=== PATIENT | male | born 1985 | race Caucasian/White ===

== ENCOUNTER 2017-04-01 05:17 | Day surgery (SDC) | payer BC, MEDICAID ==
[2017-04-01] MEDS ORDERED: Glycopyrrolate 0.2 MG/ML 2 ML SDV IV ONE (05:18)
[2017-04-01] MEDS ORDERED: Ketorolac 30 MG/ML SDV IVPUSH ONE (05:18)
[2017-04-01] MEDS ORDERED: Lidocaine 2% 20 ML MDV INJECT ONE (05:18)
[2017-04-01] MEDS ORDERED: Ondansetron 4 MG/2 ML SDV IV ONE (05:18)
[2017-04-01] MEDS ORDERED: Midazolam 1 MG/ML 2 ML SDV IV ONE (05:18)
[2017-04-01] MEDS ORDERED: Famotidine 20 MG/2 ML SDV IV ONE (05:18)
[2017-04-01] MEDS ORDERED: Lidocaine 1% 30 ML SDV INJECT ONE ×3 (05:18→09:01)
[2017-04-01] MEDS ORDERED: fentaNYL 100 MCG/2 ML SDV IV ONE (05:18)
[2017-04-01] MEDS ORDERED: Propofol 200 MG/20 ML SDV IV ONE (05:18)
[2017-04-01] MEDS ORDERED: Sodium Chloride 0.9% 10 ML Syringe FLUSH PRN ×2 (06:00)
[2017-04-01] MEDS ORDERED: ceFAZolin 1 GM in Premix Bag 1 BAG IV ONE ×2 (06:00→06:47)
[2017-04-01] MEDS: Lactated Ringers 1,000 ML IV SCH ×2 (06:20→10:00)
[2017-04-01] MEDS ORDERED: Phenylephrine 1% 10 MG/ML SDV ONE (06:28)
[2017-04-01] MEDS ORDERED: ePHEDrine 50 MG/ML SDV ONE (06:28)
[2017-04-01] MEDS ORDERED: fentaNYL 100 MCG/2 ML SDV ONE (06:28)
[2017-04-01] MEDS ORDERED: Metoclopramide 10 MG/2 ML SDV ONE (06:28)
[2017-04-01] MEDS ORDERED: Ondansetron 4 MG/2 ML SDV ONE (06:28)
[2017-04-01] MEDS ORDERED: Ketorolac 30 MG/ML SDV ONE (06:28)
[2017-04-01] MEDS ORDERED: Famotidine 20 MG/2 ML SDV ONE (06:29)
[2017-04-01] MEDS ORDERED: Propofol 200 MG/20 ML SDV ONE (06:29)
[2017-04-01] MEDS ORDERED: Glycopyrrolate 0.2 MG/ML 2 ML SDV ONE (06:29)
[2017-04-01] MEDS ORDERED: Succinylcholine 200 MG/10 ML MDV ONE (06:29)
[2017-04-01] MEDS ORDERED: Rocuronium 50 MG/5 ML Vial ONE (06:29)
[2017-04-01] MEDS ORDERED: Lidocaine 2% 20 ML MDV ONE (06:29)
[2017-04-01] MEDS ORDERED: Bupivacaine 0.5% 10 ML SDV ONE (06:31)
[2017-04-01] MEDS ORDERED: Lidocaine 1% 30 ML SDV ONE (06:31)
[2017-04-01] MEDS ORDERED: Midazolam 1 MG/ML 2 ML SDV ONE (06:39)
[2017-04-01] MEDS ORDERED: Bupivacaine 0.5% 10 ML SDV INJECT ONE ×2 (07:00→09:01)
[2017-04-01] MEDS ORDERED: HYDROmorphone 1 MG/ML Syringe ONE ×2 (09:47→10:14)
[2017-04-01 11:35] VITALS: BP 127/74
--- NOTE | 2017-04-01 13:20 | PCM.OPNOTE ---
- General Post-Op/Procedure Note Date of Surgery/Procedure: 04/01/17 Operative Procedure(s): Right ankle ORIF Pre Op Diagnosis: right ankle fibula fracture Post-Op Diagnosis: mac Anesthesia Technique: General LMA Primary Surgeon: Latisha Martinez Anesthesia Provider: Gualberto Sanchez EBMayur in mLs: 5 Condition: Good Free Text/Narrative:: Intake & Output 03/31/17 04/01/17 04/01/17 22:59 06:59 14:59 Intake Total 800 Balance 800 Pt tolerated procedure well and was transported to recovery with vss and vascular status intact to right foot, TT 105 mins. Stratton fibula plate with 3.5 screws placed. Well padded L&U splint applied.
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
== END 2017-04-01 11:32 | disposition home or self-care (01) ==
LOC: DL.SDS 05:17
PROVIDERS: ATTEND Podiatrist
DX: S82.61XA Displaced fracture of lateral malleolus of right fibula, initial encounter for closed fracture (principal); F43.10 Post-traumatic stress disorder, unspecified; Z98.890 Other specified postprocedural states; F17.210 Nicotine dependence, cigarettes, uncomplicated; V86.59XA Driver of other special all-terrain or other off-road motor vehicle injured in nontraffic accident, initial encounter; Z79.899 Other long term (current) drug therapy
CPT/HCPCS: 27792; C1713; C1776; J0690; J1885; J2250; J2405; J2704; J3010; J7120; J3490; S0028

== ENCOUNTER 2023-04-12 20:36 | Emergency (ER) | payer BC, OTHER, SELFPAY ==
[2023-04-12 20:54] VITALS: BP 145/91; PULSE 119
== END 2023-04-12 21:19 | disposition home or self-care (01) ==
LOC: DL.ED 20:36
DX: S91.332A Puncture wound without foreign body, left foot, initial encounter (principal); E66.9 Obesity, unspecified; Z68.35 Body mass index [BMI] 35.0-35.9, adult; X58.XXXA Exposure to other specified factors, initial encounter
CPT/HCPCS: 99282; 99283

== ENCOUNTER 2025-01-18 18:38 | Emergency (ER) | payer OTHER ==
[2025-01-18 21:44] LABS: BASOPHILS PERCENT AUTO 0.3 % (0.0-1.0); EOSINOPHILS PERCENT AUTO 1.4 % (1.0-3.0); LYMPHOCYTES PERCENT AUTO 49.9 % (20.5-50.1); MONOCYTES PERCENT AUTO 7.9 % (2-8); NEUTROPHILS PERCENT AUTO 40.5 % (42.2-75.2); PLATELET COUNT,PLT 273 10^3/uL (150-450); RED BLOOD CELL COUNT 5.08 10^6/uL (4.6-6.2); WHITE BLOOD CELL COUNT,WBC 10.8 10^3/uL (5.0-10.0)
[2025-01-18 21:48] LABS: APPEARANCE,URINE CLOUDY (CLEAR); GLUCOSE,URINE NEGATIVE (NEGATIVE); OCCULT BLOOD,URINE NEGATIVE (NEGATIVE)
[2025-01-18 21:52] LABS: AMPHETAMINES,URINE NEGATIVE (NEGATIVE); BARBITURATES,URINE NEGATIVE (NEGATIVE); MDMA (ECSTASY), URINE NEGATIVE (NEGATIVE); METHAMPHETAMINES,URINE NEGATIVE (NEGATIVE); OPIATES,URINE NEGATIVE (NEGATIVE); OXYCODONE,URINE NEGATIVE (NEGATIVE); PHENCYCLIDINE,URINE NEGATIVE (NEGATIVE); TCA,URINE NEGATIVE (NEGATIVE)
[2025-01-18 22:05] LABS: A/G RATIO 1.3; ALANINE AMINOTRANSFERASE,ALT 22.0 U/L (16-63); ASPARTATE AMNIOTRANSFERASE,AST 10.0 U/L (15-37); BILIRUBIN TOTAL 0.4 mg/dL (0.2-1.0); BLOOD UREA NITROGEN,BUN 11.0 mg/dL (7-18); CARBON DIOXIDE,CO2 32.0 mmol/L (21-32); CHLORIDE,CL 104.0 mmol/L (98-107); CREATININE 0.79 mg/dL (0.70-1.30); EST CRCL DRUG DOSING (CG) 137.79 mL/min; ESTIMATED GFR 116.0 mL/min (>=60); GLUCOSE RANDOM 92.0 mg/dL (70-99); POTASSIUM,K 4.3 mmol/L (3.5-5.1); PROTEIN TOTAL,TP 6.8 g/dL (6.4-8.2); SODIUM,NA 143.0 mmol/L (136-145)
[2025-01-19 09:27] VITALS: BP 121/75; PULSE 90
== END 2025-01-19 09:46 ==
LOC: DL.ED 18:38
DX: F32.A Depression, unspecified (principal); R45.88 Nonsuicidal self-harm; F43.10 Post-traumatic stress disorder, unspecified; S00.01XA Abrasion of scalp, initial encounter; E66.9 Obesity, unspecified; Z79.899 Other long term (current) drug therapy; Z68.33 Body mass index [BMI] 33.0-33.9, adult; Y08.89XA Assault by other specified means, initial encounter
CPT/HCPCS: 36415; 80053; 80143; 80179; 80305; 81003; 85025; 99284; A9270